=== PATIENT | female | born 1985 ===

== ENCOUNTER 2022-05-19 06:29 | Day surgery (SDC) | payer OTHER | END 2022-05-19 11:50 | disposition home or self-care (01) | LOC: AMB-ENDOS 06:29 | PROVIDERS: ATTEND Colon & Rectal Surgery | DX: K62.5 Hemorrhage of anus and rectum (principal); K62.1 Rectal polyp; K64.8 Other hemorrhoids; E03.9 Hypothyroidism, unspecified; Z20.822 Contact with and (suspected) exposure to COVID-19 ==